=== PATIENT | male | born 1935 | race Caucasian/White ===

== ENCOUNTER 2023-12-20 09:25 | Inpatient (IN) | payer MEDICARE, OTHER, SELFPAY ==
[2023-12-20] VITALS (20 sets, daily range): BP systolic 90–123; BP diastolic 45–77; PULSE 59–91; TEMP 36.4–37.1; O2SAT 91–100; BMI 23.5; BMI 24.9
--- NOTE | 2023-12-20 09:40 | XR_ITS ---
The [address] [address] Patient Name: ANTWAN SOMMER MRN: [id number] date: 1935 Sex: M Assigned Patient Location: ER Current Patient Location: ER Accession/Order Number: [id number] Exam Date: 12/20/2023 09:52 Report Date: 12/20/2023 10:30 At the request of: SHIRIN ALBERT Procedure: XR chest 1V EXAMINATION: XR chest 1V HISTORY: weakness COMPARISON: 06/21/2021 TECHNIQUE: AP portable FINDINGS: LUNGS: Some mild increased interstitial lung markings likely representing chronic change. No new focal parenchymal infiltrates VASCULATURE: No increased pulmonary vasculature. PLEURA: No pneumothorax, effusion, or pleural thickening. CARDIAC: No cardiomegaly or cardiac silhouette abnormality. MEDIASTINUM: No visible mass or adenopathy. Left bipolar pacemaker. Aortic atherosclerosis BONES: No fracture or visible bone lesion. OTHER: Negative. XR/XR chest 1V IMPRESSION: No acute cardiopulmonary process Electronically authenticated by: JOSIAH ROBERTO Date: 12/20/2023 10:30
--- NOTE | 2023-12-20 09:40 | ECG_ITS ---
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
[2023-12-20 09:52] LABS: Basophils Absolute Auto 0.1 10^3/uL (0.0-0.1); Basophils Percent Auto 0.6 % (0.2-2.0); Eosinophils Absolute Auto 0.1 10^3/uL (0.0-0.7); Eosinophils Percent Auto 1.5 % (0.9-7.0); Hematocrit 30.4 % (42.0-54.0); Hemoglobin 9.6 g/dL (14.0-18.0); Immature Granulocytes Abs Auto 0.02 10^3/uL (0.00-0.03); Immature Granulocytes Pct Auto 0.2 % (0.0-0.5); Lymphocytes Absolute Auto 1.7 10^3/uL (1.2-3.8); Lymphocytes Percent Auto 19.9 % (20.5-60.0); Mean Corpuscular HGB Conc 31.6 g/dL (29.9-35.2); Mean Corpuscular Hemoglobin 27.8 pg (25.9-34.0); Mean Corpuscular Volume 88.1 fL (80.0-94.0); Mean Platelet Volume 12.7 fL (9.5-13.5); Monocytes Absolute Auto 0.9 10^3/uL (0.3-0.8); Monocytes Percent Auto 10.7 % (1.7-12.0); Neutrophils Absolute Auto 5.8 10^3/uL (1.4-6.5); Neutrophils Percent Auto 67.1 % (43.0-75.0); Platelet Count 157 10^3/uL (150-450); Red Blood Count 3.45 10^6/uL (4.70-6.10); Red Cell Distribution Width 14.8 % (11.0-15.0); White Blood Count 8.7 10^3/uL (4.0-11.0)
--- NOTE | 2023-12-20 09:56 | CT_ITS ---
The [address] [address] Patient Name: ANTWAN SOMMER MRN: [facility]:[id number] date: 1935 Sex: M Assigned Patient Location: ER Current Patient Location: .MAIN Accession/Order Number: [id number] Exam Date: 12/20/2023 09:52 Report Date: 12/20/2023 10:15 At the request of: SHIRIN ALBERT Procedure: CT head/brain wo con EXAM: CT head/brain wo con HISTORY: multiples falls, increasing weakness COMPARISON: None. TECHNIQUE: Axial noncontrast CT imaging of the head was performed with coronal and sagittal reformats. This CT exam was performed using one or more of the following dose reduction techniques: Automated exposure control, adjustment of the MA and/or kV according to patient size, or use of iterative reconstruction technique. FINDINGS: Calvarium/skull base: No evidence of acute fracture or destructive lesion. Mastoids and middle ears demonstrate no substantial mucosal disease. Paranasal sinuses: No air fluid levels. Brain: Streak artifact from craniocervical junction fusion hardware and of mildly degrades evaluation of posterior fossa structures. No acute intracranial hemorrhage. No acute large vascular territory infarct. Mild patchy hypodensities are present involving supratentorial white matter and left greater than right basal ganglia with the basal ganglia involvement more than typically seen relating to sequela of small vessel disease. No mass lesion or mass effect. No hydrocephalus. Additional comments: Partially visualized craniocervical junction fusion hardware. CT/CT head/brain wo con IMPRESSION: 1. No acute large vascular territory infarct or acute intracranial hemorrhage. 2. Mild patchy hypodensities are present involving supratentorial white matter and left greater than right basal ganglia with the basal ganglia involvement more than typically seen relating to sequela small vessel disease. While this may relate to a prominent perivascular spaces not well evaluated on CT areas of acute ischemia are not excluded. If there is clinical concern for acute ischemia recommend MRI brain for further evaluation. Electronically authenticated by: DOT MONACO Date: 12/20/2023 10:15
[2023-12-20 10:03] LABS: Influenza Virus A Antigen Negative; Influenza Virus B Antigen Negative; Internal Control Within Normal Limits; SARS-CoV-2 Ag NEGATIVE (NEGATIVE)
[2023-12-20] MEDS: 0.9 % SODIUM CHLORIDE 500 ML IV (10:11)
--- NOTE | 2023-12-20 10:17 | ED.WEAKNESS1 ---
HPI - Weakness General Chief complaint: Weakness Stated complaint: GENERAL WEAKNESS Time Seen by Provider: 12/20/23 09:29 Source: patient Mode of arrival: ambulance Limitations: no limitations History of Present Illness HPI Narrative: Present to the ED complaining of generalized weakness. Patient states recently he has had some falls, he said he is fallen 3 times Since Monday. Today he was so weak he could not even get out of bed. He said for the past 2 weeks he has noticed that his left leg seems more weak than his right. He denies any chest pain or shortness of breath denies belly pain nausea vomiting. No syncope. He does have a little bit of elbow pain because of the fall with a small hematoma and abrasion but no pain with range of motion. He is alert and oriented x 3. Denies UTI symptoms. He just reports generalized weakness that has been progressively worsening and was the worst this morning with him being unable to even get out of bed. Patient has a pacemaker and is on a blood thinner due to a history of blood clots Related Data Home Medications ?Medication ?Instructions ?Recorded ?Confirmed allopurinol 100 mg tablet 100 mg PO DAILY 12/20/23 12/20/23 atorvastatin 10 mg tablet 10 mg PO DAILY 12/20/23 12/20/23 baclofen 10 mg tablet 10 mg PO BEDTIME 12/20/23 12/20/23 brimonidine 0.2 % eye drops 1 drp ophthalmic (eye) BID 12/20/23 12/20/23 furosemide 20 mg tablet mg 12/20/23 furosemide 40 mg tablet 40 mg PO .every other day 12/20/23 12/20/23 latanoprost 0.005 % eye drops 1 drp ophthalmic (eye) BEDTIME 12/20/23 12/20/23 lisinopril 20 mg tablet 20 mg PO DAILY 12/20/23 12/20/23 metoprolol succinate 100 mg 100 mg PO DAILY 12/20/23 12/20/23 tablet,extended release 24 hr oxybutynin chloride 5 mg 5 mg PO DAILY 12/20/23 12/20/23 tablet,extended release 24 hr pregabalin 75 mg capsule 75 mg PO DAILY 12/20/23 12/20/23 rivaroxaban 15 mg tablet (Xarelto) 15 mg PO DAILY 12/20/23 12/20/23 spironolactone 25 mg tablet 25 mg PO DAILY 12/20/23 12/20/23 tamsulosin 0.4 mg capsule 0.4 mg PO DAILY 12/20/23 12/20/23 timolol maleate 0.5 % eye drops 1 drp ophthalmic (eye) DAILY 12/20/23 12/20/23 Allergies Allergy/AdvReac Type Severity Reaction Status Date / Time No Known Drug Allergies Allergy Verified 12/20/23 09:27 Review of Systems ROS Status of ROS 10 or more systems reviewed and unremarkable except as noted in history and below Exam Narrative Exam Narrative: Time Seen: [] Vital Signs: [Per nurse's notes.] General: [Alert]Generalized weakness Skin: [Warm, dry, no rash.] Head: [Normocephalic, atraumatic.] Neck: [Supple, trachea midline.] Eye: [Pupils are equal, round and reactive to light, extraocular movements are intact, normal conjunctiva.] Ears, nose, mouth and throat: oral mucosa moist. Cardiovascular: [Regular rate and rhythm, no murmur.] Respiratory: [Lungs are clear to auscultation, respirations are non-labored, breath sounds are equal.] Chest wall: [No tenderness, no deformity.] Gastrointestinal: [Soft, nontender, non distended, normal bowel sounds.] MSK: Slight weakness on the left lower extremity which is more pronounced than the other extremities. Normal distal pulses and sensation. No calf pain or swelling. Lymphatics: [No lymphadenopathy.] Psychiatric: [Cooperative, appropriate mood & affect.] Neurological: [Alert and oriented to person, place, time, and situation, no focal neurological deficit observed.] Constitutional Vital Signs, click to edit/add: Last Vital Signs Temp 98.7 F 12/20/23 09:27 Pulse 83 12/20/23 11:01 Resp 16 12/20/23 09:30 BP 96/45 L 12/20/23 11:01 Pulse Ox 100 12/20/23 11:01 O2 Del Method Room Air 12/20/23 09:27 Course Vital Signs Vital signs: Vital Signs Temperature 98.7 F 12/20/23 09:27 Pulse Rate 91 H 12/20/23 09:27 Respiratory Rate 24 H 12/20/23 09:27 Blood Pressure 121/70 12/20/23 09:27 Pulse Oximetry 98 12/20/23 09:27 Oxygen Delivery Method Room Air 12/20/23 09:27 Temperature 98.7 F 12/20/23 09:27 Pulse Rate 83 12/20/23 11:01 Respiratory Rate 16 12/20/23 09:30 Blood Pressure 96/45 L 12/20/23 11:01 Pulse Oximetry 100 12/20/23 11:01 Oxygen Delivery Method Room Air 12/20/23 09:27 MDM - Weakness MDM Narrative Medical decision making narrative: I spoke to Dr. Magaña who requested that I talk to telestroke to make sure that the left Leg weakness and potential ischemia on the CT does not need to be transferred out or any different type of workup. I spoke to telestroke and they said to keep him here as this was appropriate at this time and order an MRI MRA Head and neck. I called Dr. Magaña back and filled him in on this and he is comfortable with care plan for admission. Patient is comfortable with staying in the hospital. He is stable here in ED and will be admitted for further workup of the weakness Differential Diagnosis Differential diagnosis: Likely sepsis and other (Stroke, TIA, electrolyte abnormality) Medical Records Attestation: I reviewed the patient's medical records. Lab Data Attestation: I reviewed the patient's lab results. Labs: Lab Results 12/20/23 12/20/23 12/20/23 Range/Units 09:35 09:45 10:38 WBC 8.7 (4.0-11.0) 10^3/uL RBC 3.45 L (4.70-6.10) 10^6/uL Hgb 9.6 L (14.0-18.0) g/dL Hct 30.4 L (42.0-54.0) % MCV 88.1 (80.0-94.0) fL MCH 27.8 (25.9-34.0) pg MCHC 31.6 (29.9-35.2) g/dL RDW 14.8 (11.0-15.0) % Plt Count 157 (150-450) 10^3/uL MPV 12.7 (9.5-13.5) fL Neut % (Auto) 67.1 (43.0-75.0) % Lymph % (Auto) 19.9 L (20.5-60.0) % [place] % (Auto) 10.7 (1.7-12.0) % Eos % (Auto) 1.5 (0.9-7.0) % Baso % (Auto) 0.6 (0.2-2.0) % Neut # (Auto) 5.8 (1.4-6.5) 10^3/uL Lymph # (Auto) 1.7 (1.2-3.8) 10^3/uL [place] # (Auto) 0.9 H (0.3-0.8) 10^3/uL Eos # (Auto) 0.1 (0.0-0.7) 10^3/uL Baso # (Auto) 0.1 (0.0-0.1) 10^3/uL Abs Immat Gran (auto) 0.02 (0.00-0.03) 10^3/uL Imm/Tot Granulo (auto) 0.2 (0.0-0.5) % Sodium 139 (136-145) mmol/L Potassium 4.1 (3.5-5.1) mmol/L Chloride 106 (98-107) mmol/L Carbon Dioxide 25.0 (21.0-32.0) mmol/L Anion Gap 12.1 BUN 47.0 H (7.0-18.0) mg/dL Creatinine 1.83 H (0.70-1.30) mg/dL Est GFR ( Amer) 43 L (>=60) Est GFR (Non-Af Amer) 35 L (>=60) BUN/Creatinine Ratio 25.7 Glucose 92 (74-106) mg/dL Calcium 9.4 (8.5-10.1) mg/dL Total Bilirubin 0.7 (0.2-1.0) mg/dL AST 19 (15-37) U/L ALT 13 L (16-63) U/L Alkaline Phosphatase 64 (46-116) U/L Troponin I High Sens 75.1 (4.0-76.1) pg/mL Total Protein 8.1 (6.4-8.2) g/dL Albumin 3.1 L (3.4-5.0) g/dL Globulin 5.0 g/dL Albumin/Globulin Ratio 0.6 Urine Color Lt. yellow (YELLOW) Urine Clarity Clear (CLEAR) Urine pH 6.0 (5.0-9.0) Ur Specific [place] 1.015 (1.005-1.025) Urine Protein Negative (NEG/TRACE) mg/dL Urine Glucose (UA) Negative (NEGATIVE) mg/dL Urine Ketones Negative (NEGATIVE) mg/dL Urine Occult Blood Small A (NEGATIVE) Urine Nitrite Negative (NEGATIVE) Urine Bilirubin Negative (NEGATIVE) Urine Urobilinogen 0.2 (0.2-1.0) EU/dL Ur Leukocyte Esterase Negative (NEGATIVE) Urine RBC 5-10 A (0-2) #/HPF Urine WBC 0-2 A (NONE SEEN) #/HPF Ur Squamous Epith Cells Rare (NONE/RARE) #/LPF Urine Crystals None seen (None Seen) #/HPF Urine Bacteria None seen (NONE SEEN) #/HPF Urine Casts None seen (NONE SEEN) #/LPF Urine Mucus None seen (NONE SEEN) Ur Culture Indicated? No Influenza Type A Ag Negative Influenza Type B Ag Negative SARS-CoV-2 Ag (CV2AG) Negative (NEGATIVE) Imaging Data CT scan - head: Radiologist's impression: ITS Impressions Chest X-Ray 12/20/23 09:40 IMPRESSION: No acute cardiopulmonary process Electronically authenticated by: JOSIAH ROBERTO Date: 12/20/2023 10:[address] 12/20/23 09:56 IMPRESSION: 1. No acute large vascular territory infarct or acute intracranial hemorrhage. 2. Mild patchy hypodensities are present involving supratentorial white matter and left greater than right basal ganglia with the basal ganglia involvement more than typically seen relating to sequela small vessel disease. While this may relate to a prominent perivascular spaces not well evaluated on CT areas of acute ischemia are not excluded. If there is clinical concern for acute ischemia recommend MRI brain for further evaluation. Electronically authenticated by: DOT MONACO Date: 12/20/2023 10:15 ECG Data Attestation: I personally reviewed and interpreted this ECG as follows: Interpretation: EKG INTERPRETATION Time: []821 Rate: []83 Rhythm: _ []Paced ST segments: _ [] T waves: _ [] Ectopy: _ [] P wave/VA interval: _ [] QRS interval: _ [] QT interval: _ [] Comparison: _ [] Comparison EKG date: [] Performed by: [self]Wide-complex QRS paced rhythm left bundle branch block EMS EKG Discharge Plan Discharge Chief Complaint: Weakness Clinical Impression: Brain TIA, Weakness Patient Disposition: Admitted As Inpatient Time of Disposition Decision: 11:20 Condition: Fair Prescriptions / Home Meds: No Action Xarelto 15 mg tablet 15 mg PO DAILY allopurinol 100 mg tablet 100 mg PO DAILY atorvastatin 10 mg tablet 10 mg PO DAILY baclofen 10 mg tablet 10 mg PO BEDTIME brimonidine 0.2 % drops 1 drp OPHTHALMIC (EYE) BID furosemide 40 mg tablet 40 mg PO .every other day furosemide 20 mg tablet latanoprost 0.005 % drops 1 drp OPHTHALMIC (EYE) BEDTIME lisinopril 20 mg tablet 20 mg PO DAILY metoprolol succinate 100 mg tablet extended release 24 hr 100 mg PO DAILY oxybutynin chloride 5 mg tablet extended release 24hr 5 mg PO DAILY pregabalin 75 mg capsule 75 mg PO DAILY spironolactone 25 mg tablet 25 mg PO DAILY timolol maleate 0.5 % drops 1 drp OPHTHALMIC (EYE) DAILY tamsulosin 0.4 mg capsule 0.4 mg PO DAILY Print Language: Sinhala Referrals: KERRI OSBORNE [Primary Care Provider] - 1 week
[2023-12-20 10:26] LABS: Alanine Aminotransferase 13 U/L (16-63); Albumin Globulin Ratio 0.6; Albumin Level 3.1 g/dL (3.4-5.0); Alkaline Phosphatase 64 U/L (46-116); Anion Gap 12.1; Aspartate Amino Transferase 19 U/L (15-37); BUN Creatinine Ratio 25.7; Bilirubin Total 0.7 mg/dL (0.2-1.0); Calcium 9.4 mg/dL (8.5-10.1); Chloride 106 mmol/L (98-107); Estimated GFR (African America 43 (>=60); Estimated GFR (Non-African Ame 35 (>=60); Glucose 92 mg/dL (74-106); Potassium 4.1 mmol/L (3.5-5.1); Sodium 139 mmol/L (136-145); Total Protein 8.1 g/dL (6.4-8.2); Troponin I High Sensitivity 75.1 pg/mL (4.0-76.1)
[2023-12-20 10:49] LABS: Bilirubin Urine NEGATIVE (NEGATIVE); Blood Urine SMALL (NEGATIVE); Clarity Urine CLEAR (CLEAR); Color Urine LT. YELLOW (YELLOW); Glucose Urine UA NEGATIVE (NEGATIVE); Ketones Urine NEGATIVE (NEGATIVE); Leukocyte Esterase Urine NEGATIVE (NEGATIVE); Nitrite Urine NEGATIVE (NEGATIVE); Protein Urine NEGATIVE (NEG/TRACE); Specific Gravity Urine 1.015 (1.005-1.025); Urine Microscopic Indicated YES; Urobilinogen Urine 0.2 EU/dL (0.2-1.0)
[2023-12-20 10:51] LABS: WBC Urine 0-2 #/HPF (NONE SEEN)
[2023-12-20 10:52] LABS: Bacteria Urine NONE SEEN #/HPF (NONE SEEN); Cast Seen? NONE SEEN #/LPF (NONE SEEN); Crystals Seen? None Seen #/HPF (None Seen); Mucus Urine NONE SEEN (NONE SEEN); Squamous Epithelial Cell Urine RARE #/LPF (NONE/RARE); Urine Culture Indicated NO
--- NOTE | 2023-12-20 11:37 | CA_ITS ---
Patient Name: ANTWAN SOMMER MR#: [id number] : 1935 Exam Date: 12/20/2023 Ordering Doctor: Fadumo Roman ECHOCARDIOGRAM REPORT PROCEDURE: CA ECHO DOPPLER COMPLETE INDICATIONS: Suspected CVA COMPARISON: None. DESCRIPTION: COMPLETE ECHOCARDIOGRAM Real-time transthoracic echocardiography with 2D, M-mode, spectral and color flow Doppler performed. QUALITY: Technical quality was good. LEFT VENTRICLE: Normal chamber size. Mild concentric left ventricular hypertrophy. LV EF: Global left ventricular systolic function is at lower normal limits; ejection fraction is estimated at 50 to 55%. Abnormal septal motion may be related to paced rhythm/bundle branch block. DIASTOLIC: Unable to assess diastolic function. ATRIAL SEPTUM: Agitated saline contrast does not reveal an intra-cardiac shunt. LEFT ATRIUM: Severe dilatation. RIGHT ATRIUM: Moderate dilatation. RIGHT VENTRICLE: Moderate dilatation. Decreased right ventricular systolic function. Pacer wire present. TRICUSPID VALVE: Normal mobility and thickness. Mild regurgitation. Mild pulmonary hypertension. RVSP 35mmHg MITRAL VALVE: Normal mobility and thickness. No evidence of mitral valve stenosis. There is no mitral annular calcification. Moderate mitral regurgitation. AORTIC VALVE: Normal trileaflet appearance. Moderately calcified aortic valve. Normal leaflet mobility. No evidence of aortic valve stenosis. Mild aortic regurgitation. AORTIC ROOT: Mildly dilated, measuring 4.2cm. Mildly dilated ascending aorta, measuring 3.7 cm. PULMONIC VALVE: Normal thickness and mobility. No stenosis. No regurgitation. PERICARDIUM: No evidence of pericardial effusion. IVC: Collapses with inspirations. Normal size. CONCLUSION: 1. Global left ventricular systolic function is Normal limits; visually estimated ejection fraction is 50 to 55% 2. The right ventricle is moderately dilated with reduced systolic function 3. Mildly increased left ventricular wall thickness 4. Biatrial enlargement 5. Mild tricuspid regurgitation 6. Mildly elevated right ventricular systolic pressure; RVSP 35 mmHg 7. Moderate mitral regurgitation 8. Mild aortic regurgitation 9. The aortic root is mildly dilated; the ascending aorta is mildly dilated 10. Agitated saline contrast does not reveal an intracardiac shunt Adult Echocardiography Procedure Report Left Ventricle LVEDD (3.7 - 5.6 cm): 4.74 cm LVESD (2.2 - 4.0 cm): 3.23 cm LVIVS thickness (0.6 - 1.2 cm): 1.34 cm LVPW thickness (0.5 - 1.0 cm): 1.20 cm e': 0.12 m/s E - e': 5.24 LVOT Max Gradient: 1.81 mm[Hg] LVOT Area (cm2): 0.67 m/s Peak Velocity (LVOT): 0.67 m/s Mean Velocity (LVOT): 0.46 m/s LVOT Diameter 2.06 cm Left Ventricular Ejection Fraction: 53.25 % Left Atrium LA Volume Index (2D A2C): 72.13 ml/m2 Left Atrium Systolic Dimension: 4.56 cm Mitral Valve Mitral Valve E-Wave Peak Velocity: 0.64 m/s Right Ventricle RV Internal Diastolic Dimension: 5.03 cm Aorta AO Root Diam: 4.16 cm Ascending Ao Diam: 3.69 cm Aortic Valve AoV Area (Peak Delvis): 2.27 cm2, 2.27 cm2 AoV Area (VTI): 2.32 cm2, 2.32 cm2 Deceleration [place]: 1.17 m/s2 Pressure Half-Time: 776.11 ms Peak Velocity(Antegrade Flow): 0.99 m/s Peak Gradient(Antegrade Flow): 3.94 mm[Hg] Mean Velocity(Antegrade Flow): 0.69 m/s Mean Gradient(Antegrade Flow): 2.21 mm[Hg] Velocity Time Integral: 21.37 cm Tricuspid Valve Peak Velocity (Regurgitant Flow): 2.25 m/s, 2.74 m/s, 2.84 m/s Pulmonic Valve Mean Gradient: 1.20 mm[Hg] Mean Velocity: 0.52 m/s Peak Velocity: 0.72 m/s, 0.70 m/s Peak Gradient: 1.95 mm[Hg], 2.10 mm[Hg] Right Atrium Right Atrium Systolic Pressure: 107.36 ml, 107.36 ml Dictated by: Pierre Rodriguez M.D. on 12/22/2023 at 12:22 Approved by: Pierre Rodriguez M.D. on 12/22/2023 at 12:30
[2023-12-20 12:01] LABS: Estimated Average Glucose 111 mg/dL; Glycohemoglobin A1C 5.5 % (4.5-6.2)
[2023-12-20 12:02] LABS: Chol HDL Ratio 2.2; Cholesterol 103 mg/dL (<=200); HDL Cholesterol 47 mg/dL (40-60); LDL Cholesterol Calculated 43.2 mg/dL; Triglycerides 64 mg/dL (<=150); VLDL CHOLESTEROL 12.8 mg/dL
--- NOTE | 2023-12-20 13:44 | CT_ITS ---
The [address] [address] Patient Name: ANTWAN SOMMER MRN: [id number] date: 1935 Sex: M Assigned Patient Location: MS Current Patient Location: MS Accession/Order Number: [id number] Exam Date: 12/20/2023 13:35 Report Date: 12/20/2023 14:22 At the request of: TREVER GONZALEZ Procedure: CT angio neck EXAM: CT angio neck, CT angio head HISTORY: Weakness/Falls/suspected CVA COMPARISON: CT head 12/20/2023. TECHNIQUE: Postcontrast CTA imaging of the head and neck was performed with coronal and sagittal reformats. Maximum intensity projection and 3-D reformats were performed on a separate workstation. NASCET criteria was utilized. This CT exam was performed using one or more of the following dose reduction techniques: Automated exposure control, adjustment of the MA and/or kV according to patient size, or use of iterative reconstruction technique. FINDINGS: Aortic arch: Imaged portion shows no evidence of aneurysm. 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 No hemodynamically significant stenosis involving origins of the aortic arch branch vessels.. Right carotid system: There is atherosclerotic ossification involving the carotid bulb and proximal right internal carotid artery. No evidence of significant (50% or greater) stenosis or occlusion. Left carotid system: Dense atherosclerotic ossification involving the carotid bulb and origin/proximal left internal carotid artery with short segment approximately 50% stenosis just distal to the origin. Vertebral arteries: Codominant. Atherosclerotic calcification of the origins of the bilateral vertebral arteries with mild stenosis. No evidence of significant (50% or greater) stenosis or occlusion. Anterior circulation: No evidence of aneurysm, significant stenosis, or occlusion. Absent versus extremely hypoplastic left A1 anterior cerebral artery segment. Vertebrobasilar system: No evidence of aneurysm, significant stenosis, or occlusion. Venous sinuses: Grossly patent. Additional findings: Mild emphysematous changes involving the visualized upper lungs. CT/CT angio neck IMPRESSION: 1. 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 2. Otherwise no hemodynamically significant stenosis, large vessel occlusion or aneurysm involving the neck or intracranial arteries. Electronically authenticated by: DOT MONACO Date: 12/20/2023 14:22
--- NOTE | 2023-12-20 13:44 | CT_ITS ---
The [address] [address] Patient Name: ANTWAN SOMMER MRN: [id number] date: 1935 Sex: M Assigned Patient Location: MS Current Patient Location: MS Accession/Order Number: [id number] Exam Date: 12/20/2023 13:35 Report Date: 12/20/2023 14:22 At the request of: TREVER GONZALEZ Procedure: CT angio head EXAM: CT angio neck, CT angio head HISTORY: Weakness/Falls/suspected CVA COMPARISON: CT head 12/20/2023. TECHNIQUE: Postcontrast CTA imaging of the head and neck was performed with coronal and sagittal reformats. Maximum intensity projection and 3-D reformats were performed on a separate workstation. NASCET criteria was utilized. This CT exam was performed using one or more of the following dose reduction techniques: Automated exposure control, adjustment of the MA and/or kV according to patient size, or use of iterative reconstruction technique. FINDINGS: Aortic arch: Imaged portion shows no evidence of aneurysm. 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 No hemodynamically significant stenosis involving origins of the aortic arch branch vessels.. Right carotid system: There is atherosclerotic ossification involving the carotid bulb and proximal right internal carotid artery. No evidence of significant (50% or greater) stenosis or occlusion. Left carotid system: Dense atherosclerotic ossification involving the carotid bulb and origin/proximal left internal carotid artery with short segment approximately 50% stenosis just distal to the origin. Vertebral arteries: Codominant. Atherosclerotic calcification of the origins of the bilateral vertebral arteries with mild stenosis. No evidence of significant (50% or greater) stenosis or occlusion. Anterior circulation: No evidence of aneurysm, significant stenosis, or occlusion. Absent versus extremely hypoplastic left A1 anterior cerebral artery segment. Vertebrobasilar system: No evidence of aneurysm, significant stenosis, or occlusion. Venous sinuses: Grossly patent. Additional findings: Mild emphysematous changes involving the visualized upper lungs. CT/CT angio head IMPRESSION: 1. 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 2. Otherwise no hemodynamically significant stenosis, large vessel occlusion or aneurysm involving the neck or intracranial arteries. Electronically authenticated by: DOT MONACO Date: 12/20/2023 14:22
--- NOTE | 2023-12-20 14:12 | P.HP_ITS ---
<Statement entered by Mesfin Magaña MD - 12/21/23 20:46> This documentation has been reviewed and approved. Pt seen and exam,ined at bedside, agree with input and finding from Nurse practitioner. HPI H&P: HPI History of Present Illness Chief complaint: BRAIN TIA WEAKNESS Narrative: 12/20/23 4093 This is an 88-year-old male patient with a complicated past medical history as outlined below including paroxysmal A-fib and history of PE/DVT on Xarelto, HFrEF LVEF 40 to 45% 07/2023, severe pulmonary HTN, pacemaker in place for sick sinus syndrome, BPH, HTN, and hyperlipidemia among others; who presented to the ED today complaining of frequent falls for the last 5 days. He notes onset of mild left lower extremity weakness about 7 to 10 days ago and his family notes onset of a weak voice about 5 to 7 days ago. The patient reports falling 3 times in the last 5 days which is unusual for him. He denies dizziness, vision changes, chest pain, shortness of breath, or N/V/D. He does complain of a cough for 2 to 3 days. He presented to the ED for further evaluation as his symptoms were persistent. Workup in the ED revealed hypotension (96/45), JORY on CKD 3A (BUN 47, CR 1.83, GFR 35), and anemia (9.6). Chest x-ray was unremarkable. A CT of the brain was obtained and this revealed no acute large vascular territory infarcts or hemorrhage, but patchy hypodensities of the supratentorial white matter and left greater than right basal ganglia with the basal ganglia involvement more than typically seen related to small vessel disease and acute ischemia cannot be excluded. The patient shows left sided weakness on exam. He is being admitted as an inpatient to the hospitalist service for suspected CVA with further neurologic workup and telestroke consult. At the time of my exam the patient is resting in bed having just come back from a CTA of the head and neck per telestroke recommendations. The patient is unable to have an MRI brain or an MRA of the head and neck due to his indwelling pacemaker. On my exam he appears to have a mild flattened nasolabial fold, very mild left upper extremity weakness with pediatric anesthesiologist pushes and pulls, and more notable weakness of the left lower extremity having difficulty holding it up against gravity. His voice is weak and soft, but no evidence of dysarthria. He does appear clinically dry on exam and we will hold his diuretics at least for the next 24 hours and given very gentle, slow IV fluid x 500 mL. Opioid HPI Opioid Management Most Recent Opioid Data: Last Pain Scale 3 12/20/23 09:27 Last Pain Assessment 12/20/23 15:57 Last ED Pain Assessment 12/20/23 09:27 Last ORT Total Score 0 12/20/23 12:53 Last ORT Risk Category Low Risk 12/20/23 12:53 Review of Systems ROS Status of ROS 10 or more systems reviewed and unremark able except as noted in history and below [facility] Medical History (Updated 12/20/23 @ 15:59 by Fadumo Roman NP) Cervical radiculopathy ?M54.12 - Radiculopathy, cervical region (ICD-10) Psoriatic arthritis ?L40.50 - Arthropathic psoriasis, unspecified (ICD-10) GERD without esophagitis ?K21.9 - Gastro-esophageal reflux disease without esophagitis (ICD-10) Raynaud's disease without gangrene ?I73.00 - Raynaud's syndrome without gangrene (ICD-10) Sinus node dysfunction ?I49.5 - Sick sinus syndrome (ICD-10) Cardiomyopathy ?I42.9 - Cardiomyopathy, unspecified (ICD-10) Pulmonary embolism ?I26.99 - Other pulmonary embolism without acute cor pulmonale (ICD-10) CKD (chronic kidney disease) stage 3, GFR 30-59 ml/min ?N18.30 - Chronic kidney disease, stage 3 unspecified (ICD-10) HFrEF (heart failure with reduced ejection fraction) ?I50.20 - Unspecified systolic (congestive) heart failure (ICD-10) BPH (benign prostatic hyperplasia) ?N40.0 - Benign prostatic hyperplasia without lower urinary tract symptoms (ICD-10) Kidney stones ?N20.0 - Calculus of kidney (ICD-10) Paroxysmal A-fib ?I48.0 - Paroxysmal atrial fibrillation (ICD-10) Glaucoma ?H40.9 - Unspecified glaucoma (ICD-10) Gout ?M10.9 - Gout, unspecified (ICD-10) DVT (deep venous thrombosis) ?I82.409 - Acute embolism and thrombosis of unspecified deep veins of unspecified lower extremity (ICD-10) Incontinence of urine ?R32 - Unspecified urinary incontinence (ICD-10) High blood cholesterol ?E78.00 - Pure hypercholesterolemia, unspecified (ICD-10) Hypertension ?I10 - Essential (primary) hypertension (ICD-10) Surgical History (Updated 12/20/23 @ 14:26 by Fadumo Roman NP) History of permanent cardiac pacemaker placement ?Z95.0 - Presence of cardiac pacemaker (ICD-10) H/O neck surgery ?Z98.890 - Other specified postprocedural states (ICD-10) H/O lithotripsy ?Z98.890 - Other specified postprocedural states (ICD-10) Family History (Updated 12/20/23 @ 13:23 by Kamila Emery) Mother Family history of CHF (congestive heart failure) Brother Family history of cancer Sister Family history of diabetes mellitus Social History (Updated 12/20/23 @ 13:24 by Kamila Emery) Within the past year, how often did you have a drink containing alcohol: never Within the past year, how often did you have six or more drinks on one occasion: never Score interpretation: A score less than 4 is consistent with normal alcohol consumption. Smoking status: Former smoker Non-prescribed substance use: denies use Previous occupational history: retired Highest level of school completed/degree received: 6th grade Are you now , , , , never or living with a partner: Little interest or pleasure in doing things: not at all Feeling down, depressed, or hopeless: not at all Feel stressed/tense/nervous/anxious/difficulty sleeping: not at all Meds Home Medications and Allergies Home Medications ?Medication ?Instructions ?Recorded ?Confirmed ?Type allopurinol 100 mg tablet 100 mg PO DAILY 12/20/23 12/20/23 History atorvastatin 10 mg tablet 10 mg PO DAILY 12/20/23 12/20/23 History baclofen 10 mg tablet 10 mg PO BEDTIME 12/20/23 12/20/23 History brimonidine 0.2 % eye drops 1 drp ophthalmic (eye) BID 12/20/23 12/20/23 History furosemide 20 mg tablet mg 12/20/23 History furosemide 40 mg tablet 40 mg PO .every other day 12/20/23 12/20/23 History latanoprost 0.005 % eye drops 1 drp ophthalmic (eye) BEDTIME 12/20/23 12/20/23 History lisinopril 20 mg tablet 20 mg PO DAILY 12/20/23 12/20/23 History metoprolol succinate 100 mg 100 mg PO DAILY 12/20/23 12/20/23 History tablet,extended release 24 hr oxybutynin chloride 5 mg 5 mg PO DAILY 12/20/23 12/20/23 History tablet,extended release 24 hr pregabalin 75 mg capsule 75 mg PO DAILY 12/20/23 12/20/23 History rivaroxaban 15 mg tablet (Xarelto) 15 mg PO DAILY 12/20/23 12/20/23 History spironolactone 25 mg tablet 25 mg PO DAILY 12/20/23 12/20/23 History tamsulosin 0.4 mg capsule 0.4 mg PO DAILY 12/20/23 12/20/23 History timolol maleate 0.5 % eye drops 1 drp ophthalmic (eye) DAILY 12/20/23 12/20/23 History Allergies Allergy/AdvReac Type Severity Reaction Status Date / Time No Known Drug Allergies Allergy Verified 12/20/23 09:27 Exam Constitutional Vital Signs, click to edit/add: Last Vital Signs Temp 98 F 12/20/23 12:53 Pulse 61 12/20/23 12:53 Resp 20 12/20/23 12:53 BP 123/77 12/20/23 12:53 Pulse Ox 96 12/20/23 12:53 O2 Del Method Room Air 12/20/23 12:53 Common normals: no apparent distress, oriented x3, alert and well nourished General appearance: cooperative Orientation/consciousness: Yes awake [facility] Common normals: normocephalic, head/scalp atraumatic, hearing grossly normal bilaterally and external nose normal Eye Common normals: PERRL, EOMs intact bilaterally, conjunctivae normal and no scleral icterus Alignment: alignment normal Eyelid: eyelids normal Neck & C-Spine Common normals: full ROM, supple and no JVD Chest Common normals: inspection of chest normal Chest: symmetrical chest wall rise Respiratory Common normals: normal respiratory effort, no retractions and no use of accessory muscles Effort & inspection: able to speak in complete sentences Auscultation: rhonchi (RLL, clears with cough) and diminished lung sounds (BLL) Cardio Common normals: no JVD, regular rate, regular rhythm, S1 normal heart sound, S2 normal heart sound, no gallops, no clicks, no murmurs, no rub and peripheral pulses 2+ throughout GI Common normals: Normal to inspection, nondistended, normoactive bowel sounds present, soft to palpation, non-tender, no hepatosplenomegaly, no masses and no bruits Bladder/kidney exam: bladder normal to palpation Back & Pelvis Common normals: thoracic and lumbar spine normal to inspection Extremity Common normals: normal capillary refill and no pedal edema General: normal exam except as noted; no clubbing and no cyanosis Neuro Eamon Coma Scale: GCS not evaluated Common normals: CN's II-XII intact bilaterally, moves all extremities and no sensory deficits noted Coordination/balance: inbtnf-hi-joob test normal, tnhx-qm-fchu test normal and Normal rapid alternating movements of the distal upper extremity present (Neuro) Speech: abnormal speech Details: other (weak voice) Sensory exam: double simultaneous stimulation for sensation normal Motor exam: strength abnormal (LUE 4+/5 physical therapy resident/pushes/pulls. LLE 4/5) Psych Common normals: mental status grossly normal, thought process normal, affect normal and activity/motor behavior normal Results Labs Labs: Short CBC 12/20/23 Range/Units 09:35 WBC 8.7 (4.0-11.0) 10^3/uL Hgb 9.6 L (14.0-18.0) g/dL Hct 30.4 L (42.0-54.0) % Plt Count 157 (150-450) 10^3/uL BMP 12/20/23 09:35 Sodium 139 Potassium 4.1 Chloride 106 Carbon Dioxide 25.0 BUN 47.0 H Creatinine 1.83 H Glucose 92 Calcium 9.4 Liver Function 12/20/23 Range/Units 09:35 Total Bilirubin 0.7 (0.2-1.0) mg/dL AST 19 (15-37) U/L ALT 13 L (16-63) U/L Alkaline Phosphatase 64 (46-116) U/L Albumin 3.1 L (3.4-5.0) g/dL Urine 12/20/23 Range/Units 10:38 Urine Color Lt. yellow (YELLOW) Urine Clarity Clear (CLEAR) Urine pH 6.0 (5.0-9.0) Ur Specific [place] 1.015 (1.005-1.025) Urine Protein Negative (NEG/TRACE) mg/dL Urine Glucose (UA) Negative (NEGATIVE) mg/dL Pulse Oximetry Attestation: I have reviewed the pertinent pulse oximetry results. ECG Attestation: ?I have reviewed the pertinent ECG results. Interpretation: Electronic ventricular pacemaker Atypical ECG Compared to ECG from 06/21/2021 Atrial flutter no longer present Ventricular premature complexes no longer present Right axis deviation no longer present Intraventricular conduction delay no longer present Imaging Chest x-ray: Attestation: I have reviewed the pertinent imaging results. Radiologist's impression: IMPRESSION: No acute cardiopulmonary process CT scan - head: Attestation: I have reviewed the pertinent imaging results. Radiologist's impression: IMPRESSION: 1. No acute large vascular territory infarct or acute intracranial hemorrhage. 2. Mild patchy hypodensities are present involving supratentorial white matter and left greater than right basal ganglia with the basal ganglia involvement more than typically seen relating to sequela small vessel disease. While this may relate to a prominent perivascular spaces not well evaluated on CT areas of acute ischemia are not excluded. If there is clinical concern for acute ischemia recommend MRI brain for further evaluation. 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 * Unable to obtain an MRI brain or MRA head/neck d/t indwelling pacemaker * CTA head/neck ordered - result pending * No evidence of acute intracranial hemorrhage despite falls while taking Xarelto * Ischemic CVA likely indicates failure of Xarelto and alternate anticoagulation should be considered * Lipid panel, A1C, and 2D Echo (w/ bubble study) ordered for complete CVA work up * C/S Telestroke service - we appreciate their assistance with this pt's care * C/S PT/OT/TELESALES ADVISOR * Neuro checks q4h * Tele * CBC, CMP daily (2) Frequent falls: Assessment and Plan: Acute * Suspect 2/2 possible CVA/acute weakness * PT/OT consults * CVA work up as above * Consider SNF placement pending clinical course (3) Weakness: Assessment and Plan: Acute * See suspected CVA above (4) JORY (acute kidney injury): Assessment and Plan: Acute * Mild, JORY on CKD3a baseline (BUN 47, Cr 1.83, GFR 35) * Baseline CKD3a: BUN 25-32, Cr 1.21-1.55, GFR 43-58 * Pt clinically dry on exam * Hold home lasix and spironolactone - resume when clinically indicated * Gentle NS IVF at 50 ml/hr x 500 ml, then stop * CMP daily (5) Paroxysmal A-fib: Assessment and Plan: Chronic * EKG fully V-paced in ED * Continue home metoprolol for rate control * Continue home Xarelto for now (6) HFrEF (heart failure with reduced ejection fraction): Assessment and Plan: Chronic * Hold home lasix and spironolactone for now d/t JORY * resume as soon as clinically indicated * Daily weights/strict I&O * 2D Echo ordered for CVA work up - last LVEF 40-45% 08/16/23 * Consider cardiology consult pending clinical course (7) BPH (benign prostatic hyperplasia): Assessment and Plan: Chronic * Continue home tamsulosin (8) Glaucoma: Assessment and Plan: Chronic * Continue home brimonidine, latanoprost, timolol (9) Hypertension: Assessment and Plan: Chronic * Continue home lisinopril * Hold for hypotension (10) High blood cholesterol: Assessment and Plan: Chronic * Continue home statin (11) Cervical radiculopathy: Assessment and Plan: Chronic * Continue home baclofen and Lyrica
--- NOTE | 2023-12-20 14:57 | SWNOTE1 ---
SW attempted to see pt. Pt had someone in room with him. SW asked pt if he was up for some questions and to talk to SW for a short time. Pt did ask for SW to come back later. Lights were off in room and pt was resting in bed. SW advised pt that SW will come back later today or tomorrow morning.
[2023-12-20] MEDS: 0.9 % SODIUM CHLORIDE 500 ML 50 ML IV (15:30)
--- NOTE | 2023-12-20 16:20 | PC.NURSE ---
Brenda Mcneil stroke team called to see result of MRI. Informed that due to pacemaker, CTA had to be done. She was given Radiology number to have them push result through PACS system (?) and she will call back tomorrow am to check on patient
[2023-12-20] MEDS: PREGABALIN 75 MG CAPSULE PO (21:18)
[2023-12-20] MEDS: LATANOPROST 0.005% 2.5 ML BOTTLE 1 DROP EYE-BOTH (21:18)
[2023-12-20] MEDS: TIMOLOL MALEATE 0.5% OP SOL 100 DROPS/5 ML BOTTLE 1 DROP OP (21:18)
[2023-12-20] MEDS: BACLOFEN 10 MG TABLET PO (21:18)
[2023-12-20] MEDS: BRIMONIDINE TARTRATE 0.15 % OP SOL 100 DROP/5 ML BOTTLE EYE-LEFT (21:19)
[2023-12-21] VITALS (17 sets, daily range): BP systolic 104–121; BP diastolic 50–72; PULSE 59–77; TEMP 36.1–36.7; O2SAT 94–100
[2023-12-21 04:29] LABS: Basophils Percent Auto 0.4 % (0.2-2.0); Eosinophils Absolute Auto 0.1 10^3/uL (0.0-0.7); Hematocrit 30.1 % (42.0-54.0); Hemoglobin 9.4 g/dL (14.0-18.0); Immature Granulocytes Abs Auto 0.02 10^3/uL (0.00-0.03); Immature Granulocytes Pct Auto 0.2 % (0.0-0.5); Lymphocytes Percent Auto 11.5 % (20.5-60.0); Mean Corpuscular HGB Conc 31.2 g/dL (29.9-35.2); Mean Corpuscular Hemoglobin 27.2 pg (25.9-34.0); Monocytes Absolute Auto 0.7 10^3/uL (0.3-0.8); Monocytes Percent Auto 7.6 % (1.7-12.0); Neutrophils Absolute Auto 7.1 10^3/uL (1.4-6.5); Neutrophils Percent Auto 79.3 % (43.0-75.0); Platelet Count 141 10^3/uL (150-450); Red Blood Count 3.46 10^6/uL (4.70-6.10); Red Cell Distribution Width 14.7 % (11.0-15.0); White Blood Count 8.9 10^3/uL (4.0-11.0)
[2023-12-21 04:50] LABS: Alanine Aminotransferase 13 U/L (16-63); Albumin Globulin Ratio 0.6; Albumin Level 2.9 g/dL (3.4-5.0); Alkaline Phosphatase 57 U/L (46-116); Anion Gap 9.9; Aspartate Amino Transferase 14 U/L (15-37); BUN Creatinine Ratio 24.8; Bilirubin Total 0.7 mg/dL (0.2-1.0); Calcium 9.2 mg/dL (8.5-10.1); Carbon Dioxide 26.8 mmol/L (21.0-32.0); Chloride 105 mmol/L (98-107); Estimated GFR (African America 51 (>=60); Estimated GFR (Non-African Ame 42 (>=60); Globulin 4.6 g/dL; Glucose 103 mg/dL (74-106); Potassium 4.7 mmol/L (3.5-5.1); Sodium 137 mmol/L (136-145); Total Protein 7.5 g/dL (6.4-8.2)
--- NOTE | 2023-12-21 06:00 | CT_ITS ---
The [address] [address] Patient Name: ANTWAN SOMMER MRN: [id number] date: 1935 Sex: M Assigned Patient Location: [place] Current Patient Location: [place] Accession/Order Number: [id number] Exam Date: 12/21/2023 06:14 Report Date: 12/21/2023 07:36 At the request of: TREVER GONZALEZ Procedure: CT head/brain wo con CT head/brain wo con, 12/21/2023 6:14 AM EDT INDICATION: Monitor for CVA changes COMPARISON: Prior CT of the head dated 12/20/2023 TECHNIQUE: Axial CT images of the brain from skull base to vertex, including portions of the face and sinuses, were obtained without contrast . Multiplanar reformatted images were generated and reviewed as needed. Dose reduction techniques were achieved by using automated exposure control and/or adjustment of mA and/or kV according to patient size and/or use of iterative reconstruction technique. FINDINGS: Status post interventional changes in the occipital region causing streak artifact that decreases the sensitivity of this study. The cerebral sulci as well as ventricular system are appropriate for age. There is no intracranial mass, mass effect, midline shift, intra or extra-axial fluid collection or hemorrhage. Periventricular and centrum semiovale hypodensities are most likely consistent with microvascular ischemic changes. 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 Mucosal thickening within the frontal and maxillary sinuses is noted. The visualized portions of orbits, mastoid air cells as well as remainder of paranasal sinuses are unremarkable. Status post bilateral lens replacement. There is no suspicious osteolytic or osteoblastic lesion. CT/CT head/brain wo con IMPRESSION: No acute intracranial process is noted. No significant interval change is noted. Electronically authenticated by: DANIELLE FIGUEROA Date: 12/21/2023 07:36
--- NOTE | 2023-12-21 09:49 | SWNOTE1 ---
SW spoke to case management and pt would like to go to rehab and he would like [facility]. SW to see if they have open beds.
--- NOTE | 2023-12-21 09:52 | CM.NOTE ---
Rounds made with Dr. Magaña, no discharge today. PT and OT will evaluate pt for discharge needs. Daughter at bedside and concerned about safety of pt returning home d/t weakness. Daughter would like to see about skilled therapy at discharge, choices would be [facility] and then [facility]. Explained that PT and OT will evaluate pt today.
--- NOTE | 2023-12-21 09:55 | CM.NOTE ---
Important Message From Medicare discussed with pt, pt verbalizes understanding and signs paper. Original given to pt and copy placed on pt's chart.
[2023-12-21] MEDS: ATORVASTATIN CALCIUM 10 MG TABLET PO (10:18)
[2023-12-21] MEDS: BACLOFEN 10 MG TABLET PO ×2 (10:18→22:01)
[2023-12-21] MEDS: PREGABALIN 75 MG CAPSULE PO ×2 (10:18→22:01)
[2023-12-21] MEDS: BRIMONIDINE TARTRATE 0.15 % OP SOL 100 DROP/5 ML BOTTLE EYE-LEFT ×2 (10:19→22:02)
[2023-12-21] MEDS: TIMOLOL MALEATE 0.5% OP SOL 100 DROPS/5 ML BOTTLE 1 DROP OP ×2 (10:19→22:01)
[2023-12-21] MEDS: OXYBUTYNIN CHLORIDE 5 MG TAB XL PO (10:19)
[2023-12-21] MEDS: RIVAROXABAN 10 MG TABLET 15 MG PO (10:19)
[2023-12-21] MEDS: METOPROLOL SUCCINATE 100 MG TAB.ER.24H PO (10:19)
--- NOTE | 2023-12-21 11:19 | SWNOTE1 ---
SW sent over PT/OT notes to [facility].
--- NOTE | 2023-12-21 12:42 | PM.PN ---
Progress Note: Subjective Subjective Interval history: 12/21/23 0920 Exam Constitutional Vital Signs, click to edit/add: Last Vital Signs Temp 97.6 F 12/21/23 12:34 Pulse 60 12/21/23 12:34 Resp 18 12/21/23 12:34 BP 117/72 12/21/23 12:34 Pulse Ox 98 12/21/23 12:34 O2 Del Method Room Air 12/21/23 12:34 Progress Note: Objective Labs Labs: Short CBC 12/21/23 Range/Units 04:03 WBC 8.9 (4.0-11.0) 10^3/uL Hgb 9.4 L (14.0-18.0) g/dL Hct 30.1 L (42.0-54.0) % Plt Count 141 L (150-450) 10^3/uL BMP 12/21/23 04:03 Sodium 137 Potassium 4.7 Chloride 105 Carbon Dioxide 26.8 BUN 39.0 H Creatinine 1.57 H Glucose 103 Calcium 9.2 Liver Function 12/21/23 Range/Units 04:03 Total Bilirubin 0.7 (0.2-1.0) mg/dL AST 14 L (15-37) U/L ALT 13 L (16-63) U/L Alkaline Phosphatase 57 (46-116) U/L Albumin 2.9 L (3.4-5.0) g/dL Progress Note: A&P Assessment and Plan (1) Suspected cerebrovascular accident (CVA): (2) Frequent falls: (3) Weakness: (4) JROY (acute kidney injury): (5) Paroxysmal A-fib: (6) HFrEF (heart failure with reduced ejection fraction): (7) BPH (benign prostatic hyperplasia): (8) Glaucoma: (9) Hypertension: (10) High blood cholesterol: (11) Cervical radiculopathy:
--- NOTE | 2023-12-21 12:49 | P.PN_ITS ---
<Statement entered by Mesfin Magaña MD - 12/21/23 20:49> This documentation has been reviewed and approved. Pt seen and examined at bedside, agree with input and finding from Nurse practitioner. Progress Note: Subjective Subjective Interval history: 12/21/23 0920 The patient is currently sitting up in a bedside chair at the time of my exam. He denies any acute complaints but continues to note mild left-sided weakness, primarily in the left lower extremity, and voice weakness. A repeat CT of the brain this morning did not show any acute changes, just lacunar infarcts noted in the right basal ganglia and left insula consistent with the imaging from yesterday. Again, the patient is unable to have an MRI/MRA done due to the presence of an indwelling pacemaker. Telestroke consult visit is pending later today. Exam Constitutional Vital Signs, click to edit/add: Last Vital Signs Temp 97.6 F 12/21/23 12:34 Pulse 60 12/21/23 12:34 Resp 18 12/21/23 12:34 BP 117/72 12/21/23 12:34 Pulse Ox 98 12/21/23 12:34 O2 Del Method Room Air 12/21/23 12:34 Common normals: no apparent distress, oriented x3 and alert General appearance: cooperative Orientation/consciousness: Yes awake [facility] Common normals: normocephalic, head/scalp atraumatic and hearing grossly normal bilaterally Eye Common normals: PERRL, EOMs intact bilaterally, conjunctivae normal and no scleral icterus General eye: normal appearance of both eyes Chest Common normals: inspection of chest normal Chest: symmetrical chest wall rise Respiratory Common normals: normal respiratory effort and no use of accessory muscles Effort & inspection: able to speak in complete sentences Auscultation: crackles (faint, fine BLL) Cardio Common normals: regular rate, regular rhythm, S1 normal heart sound, S2 normal heart sound, no murmurs and peripheral pulses 2+ throughout GI Common normals: Normal to inspection, nondistended, normoactive bowel sounds present, soft to palpation, non-tender and no hepatosplenomegaly Bladder/kidney exam: bladder normal to palpation Extremity Common normals: normal to inspection and no calf tenderness General: no clubbing, no cyanosis and no edema Neuro Common normals: moves all extremities and no sensory deficits noted Speech: other (Weak voice) Motor exam: strength abnormal (LUE 4+/5, LLE 4/5 - primarily at hip flexor) Psych Common normals: mental status grossly normal Progress Note: Objective Labs Labs: Short CBC 12/21/23 Range/Units 04:03 WBC 8.9 (4.0-11.0) 10^3/uL Hgb 9.4 L (14.0-18.0) g/dL Hct 30.1 L (42.0-54.0) % Plt Count 141 L (150-450) 10^3/uL BMP 12/21/23 04:03 Sodium 137 Potassium 4.7 Chloride 105 Carbon Dioxide 26.8 BUN 39.0 H Creatinine 1.57 H Glucose 103 Calcium 9.2 Liver Function 12/21/23 Range/Units 04:03 Total Bilirubin 0.7 (0.2-1.0) mg/dL AST 14 L (15-37) U/L ALT 13 L (16-63) U/L Alkaline Phosphatase 57 (46-116) U/L Albumin 2.9 L (3.4-5.0) g/dL Imaging CT scan - head: Attestation: I have reviewed the pertinent imaging results. Radiologist's impression: IMPRESSION: No acute intracranial process is noted. No significant interval change is noted. Progress Note: A&P Assessment and Plan (1) Suspected cerebrovascular accident (CVA): Assessment and Plan: Acute/subacute * Stable - no significant improvement * Suspect subacute CVA of the R basal ganglia/L Insula (Lacunar) * Unable to obtain an MRI brain or MRA head/neck d/t indwelling pacemaker * CTA head/neck 12/20/23 - Short segment of 50% stenosis of the L internal carotid - no other stenosis/ischemia of the major vessels * No evidence of acute intracranial hemorrhage despite falls while taking Xarelto * Ischemic CVA likely indicates failure of Xarelto and alternate anticoagulation should be considered - defer to neurology * Lipid panel & A1C - WNL * 2D Echo (w/ bubble study) completed 12/20/23 - cardiology interpretation still pending * C/S Telestroke service - we appreciate their assistance with this pt's care * Televisit planned later today * C/S PT/OT/CLIENT SERVICE CONSULTANT * Neuro checks q4h - no change to date * Tele * CBC, CMP daily (2) Frequent falls: Assessment and Plan: Acute * Suspect 2/2 possible CVA/acute weakness w/ underlying chronic weakness possible * PT/OT consults * CVA work up as above * Consider SNF placement pending clinical course (3) Weakness: Assessment and Plan: Acute * See suspected CVA above (4) JORY (acute kidney injury): Assessment and Plan: Acute * Improving (BUN 39, Cr 1.57, GFR 42 today) * Baseline CKD3a: BUN 25-32, Cr 1.21-1.55, GFR 43-58 * Dehydration resolved * Resume home lasix and spironolactone in AM * Continue to hold home lisinopril for now pending BP and renal response to diuretics tomorrow * Saline lock * CMP daily (5) Paroxysmal A-fib: Assessment and Plan: Chronic * EKG fully V-paced in ED * Continue home metoprolol for rate control * Continue home Xarelto for now (6) HFrEF (heart failure with reduced ejection fraction): Assessment and Plan: Chronic * Resume home lasix and spironolactone in AM * Daily weights/strict I&O * 2D Echo ordered for CVA work up - last LVEF 40-45% 08/16/23 * Consider cardiology consult pending clinical course (7) BPH (benign prostatic hyperplasia): Assessment and Plan: Chronic * Continue home tamsulosin (8) Glaucoma: Assessment and Plan: Chronic * Continue home brimonidine, latanoprost, timolol (9) Hypertension: Assessment and Plan: Chronic * Continue home metoprolol * Hold for hypotension * Continue to hold home lisinopril for now d/t JORY (10) High blood cholesterol: Assessment and Plan: Chronic * Continue home statin (11) Cervical radiculopathy: Assessment and Plan: Chronic * Continue home baclofen and Lyrica (12) Anemia: Assessment and Plan: Chronic * 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
--- NOTE | 2023-12-21 12:49 | PM.PN ---
Progress Note: Subjective Subjective Interval history: 12/21/23 09 The patient is currently sitting up in a bedside chair at the time of my exam. He denies any acute complaints but continues to note mild left-sided weakness, primarily in the left lower extremity, and voice weakness. A repeat CT of the brain this morning did not show any acute changes, just lacunar infarcts noted in the right basal ganglia and left insula consistent with the imaging from yesterday. Again, the patient is unable to have an MRI/MRA done due to the presence of an indwelling pacemaker. Telestroke consult visit is pending later today. Exam Constitutional Vital Signs, click to edit/add: Last Vital Signs Temp 97.6 F 12/21/23 12:34 Pulse 60 12/21/23 12:34 Resp 18 12/21/23 12:34 BP 117/72 12/21/23 12:34 Pulse Ox 98 12/21/23 12:34 O2 Del Method Room Air 12/21/23 12:34 Common normals: no apparent distress, oriented x3 and alert General appearance: cooperative Orientation/consciousness: Yes awake HENMT Common normals: normocephalic, head/scalp atraumatic and hearing grossly normal bilaterally Eye Common normals: PERRL, EOMs intact bilaterally, conjunctivae normal and no scleral icterus General eye: normal appearance of both eyes Chest Common normals: inspection of chest normal Chest: symmetrical chest wall rise Respiratory Common normals: normal respiratory effort and no use of accessory muscles Effort & inspection: able to speak in complete sentences Auscultation: crackles (faint, fine BLL) Cardio Common normals: regular rate, regular rhythm, S1 normal heart sound, S2 normal heart sound, no murmurs and peripheral pulses 2+ throughout GI Common normals: Normal to inspection, nondistended, normoactive bowel sounds present, soft to palpation, non-tender and no hepatosplenomegaly Bladder/kidney exam: bladder normal to palpation Extremity Common normals: normal to inspection and no calf tenderness General: no clubbing, no cyanosis and no edema Neuro Common normals: moves all extremities and no sensory deficits noted Speech: other (Weak voice) Motor exam: strength abnormal (LUE 4+/5, LLE 4/5 - primarily at hip flexor) Psych Common normals: mental status grossly normal Progress Note: Objective Labs Labs: Short CBC 12/21/23 Range/Units 04:03 WBC 8.9 (4.0-11.0) 10^3/uL Hgb 9.4 L (14.0-18.0) g/dL Hct 30.1 L (42.0-54.0) % Plt Count 141 L (150-450) 10^3/uL BMP 12/21/23 04:03 Sodium 137 Potassium 4.7 Chloride 105 Carbon Dioxide 26.8 BUN 39.0 H Creatinine 1.57 H Glucose 103 Calcium 9.2 Liver Function 12/21/23 Range/Units 04:03 Total Bilirubin 0.7 (0.2-1.0) mg/dL AST 14 L (15-37) U/L ALT 13 L (16-63) U/L Alkaline Phosphatase 57 (46-116) U/L Albumin 2.9 L (3.4-5.0) g/dL Imaging CT scan - head: Attestation: I have reviewed the pertinent imaging results. Radiologist's impression: IMPRESSION: No acute intracranial process is noted. No significant interval change is noted. 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) Unable to obtain an MRI brain or MRA head/neck d/t indwelling pacemaker CTA head/neck 12/20/23 - Short segment of 50% stenosis of the L internal carotid - no other stenosis/ischemia of the major vessels No evidence of acute intracranial hemorrhage despite falls while taking Xarelto Ischemic CVA likely indicates failure of Xarelto and alternate anticoagulation should be considered - defer to neurology Lipid panel & A1C - WNL 2D Echo (w/ bubble study) completed 12/20/23 - cardiology interpretation still pending C/S Telestroke service - we appreciate their assistance with this pt's care Televisit planned later today C/S PT/OT/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 CARE CASE MANAGER Neuro checks q4h - no change to date Tele CBC, CMP daily (2) Frequent falls: Assessment and Plan: Acute Suspect 2/2 possible CVA/acute weakness w/ underlying chronic weakness possible PT/OT consults CVA work up as above Consider SNF placement pending clinical course (3) Weakness: Assessment and Plan: Acute See suspected CVA above (4) JORY (acute kidney injury): Assessment and Plan: Acute Improving (BUN 39, Cr 1.57, GFR 42 today) Baseline CKD3a: BUN 25-32, Cr 1.21-1.55, GFR 43-58 Dehydration resolved Resume home lasix and spironolactone in AM Continue to hold home lisinopril for now pending BP and renal response to diuretics tomorrow Saline lock CMP daily (5) Paroxysmal A-fib: Assessment and Plan: Chronic EKG fully V-paced in ED Continue home metoprolol for rate control Continue home Xarelto for now (6) HFrEF (heart failure with reduced ejection fraction): Assessment and Plan: Chronic Resume home lasix and spironolactone in AM Daily weights/strict I&O 2D Echo ordered for CVA work up - last LVEF 40-45% 08/16/23 Consider cardiology consult pending clinical course (7) BPH (benign prostatic hyperplasia): Assessment and Plan: Chronic Continue home tamsulosin (8) Glaucoma: Assessment and Plan: Chronic Continue home brimonidine, latanoprost, timolol (9) Hypertension: Assessment and Plan: Chronic Continue home metoprolol Hold for hypotension Continue to hold home lisinopril for now d/t JORY (10) High blood cholesterol: Assessment and Plan: Chronic Continue home statin (11) Cervical radiculopathy: Assessment and Plan: Chronic Continue home baclofen and Lyrica (12) Anemia: Assessment and Plan: Chronic 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
--- NOTE | 2023-12-21 15:07 | RESP.RT ---
done this morning
--- NOTE | 2023-12-21 15:59 | CM.NOTE ---
Updated pt and family that [facility] will accept pt for skilled therapy at discharge.
[2023-12-21] MEDS: ASPIRIN 81 MG TAB.CHEW PO (16:24)
[2023-12-21] MEDS: TAMSULOSIN HCL 0.4 MG CAPSULE 0.400000000000000022 MG PO (22:01)
[2023-12-21] MEDS: LATANOPROST 0.005% 2.5 ML BOTTLE 1 DROP EYE-BOTH (22:02)
[2023-12-22] VITALS (20 sets, daily range): BP systolic 103–131; BP diastolic 52–69; PULSE 53–83; TEMP 36.3–36.8; O2SAT 94–96
[2023-12-22 05:38] LABS: Basophils Percent Auto 0.6 % (0.2-2.0); Eosinophils Absolute Auto 0.2 10^3/uL (0.0-0.7); Eosinophils Percent Auto 2.9 % (0.9-7.0); Hematocrit 30.1 % (42.0-54.0); Hemoglobin 9.3 g/dL (14.0-18.0); Immature Granulocytes Abs Auto 0.01 10^3/uL (0.00-0.03); Immature Granulocytes Pct Auto 0.1 % (0.0-0.5); Lymphocytes Absolute Auto 1.4 10^3/uL (1.2-3.8); Lymphocytes Percent Auto 19.7 % (20.5-60.0); Mean Corpuscular HGB Conc 30.9 g/dL (29.9-35.2); Mean Corpuscular Hemoglobin 27.2 pg (25.9-34.0); Mean Platelet Volume 13.1 fL (9.5-13.5); Monocytes Absolute Auto 0.8 10^3/uL (0.3-0.8); Monocytes Percent Auto 10.3 % (1.7-12.0); Neutrophils Absolute Auto 4.8 10^3/uL (1.4-6.5); Neutrophils Percent Auto 66.4 % (43.0-75.0); Platelet Count 143 10^3/uL (150-450); Red Blood Count 3.42 10^6/uL (4.70-6.10); Red Cell Distribution Width 14.5 % (11.0-15.0); White Blood Count 7.3 10^3/uL (4.0-11.0)
[2023-12-22 05:51] LABS: Alanine Aminotransferase 8 U/L (16-63); Albumin Globulin Ratio 0.6; Albumin Level 2.7 g/dL (3.4-5.0); Alkaline Phosphatase 54 U/L (46-116); Anion Gap 10.6; Aspartate Amino Transferase 13 U/L (15-37); BUN Creatinine Ratio 21.2; Bilirubin Total 0.7 mg/dL (0.2-1.0); Calcium 9.2 mg/dL (8.5-10.1); Carbon Dioxide 25.5 mmol/L (21.0-32.0); Chloride 103 mmol/L (98-107); Estimated GFR (African America 59 (>=60); Estimated GFR (Non-African Ame 49 (>=60); Globulin 4.7 g/dL; Glucose 90 mg/dL (74-106); Potassium 4.1 mmol/L (3.5-5.1); Sodium 135 mmol/L (136-145); Total Protein 7.4 g/dL (6.4-8.2)
--- NOTE | 2023-12-22 08:35 | CM.NOTE ---
Rounds made with Dr. Magaña, pt will discharge to [facility] for skilled therapy when medically stable.
[2023-12-22] MEDS: BACLOFEN 10 MG TABLET PO ×2 (08:52→20:49)
[2023-12-22] MEDS: PREGABALIN 75 MG CAPSULE PO ×2 (08:52→20:49)
[2023-12-22] MEDS: METOPROLOL SUCCINATE 100 MG TAB.ER.24H PO (08:52)
[2023-12-22] MEDS: ASPIRIN 81 MG TAB.CHEW PO (08:52)
[2023-12-22] MEDS: OXYBUTYNIN CHLORIDE 5 MG TAB XL PO (08:52)
[2023-12-22] MEDS: ATORVASTATIN CALCIUM 10 MG TABLET PO (08:53)
[2023-12-22] MEDS: RIVAROXABAN 10 MG TABLET 15 MG PO (08:53)
[2023-12-22] MEDS: BRIMONIDINE TARTRATE 0.15 % OP SOL 100 DROP/5 ML BOTTLE EYE-LEFT ×2 (09:00→20:48)
[2023-12-22] MEDS: TIMOLOL MALEATE 0.5% OP SOL 100 DROPS/5 ML BOTTLE 1 DROP OP ×2 (09:00→20:48)
--- NOTE | 2023-12-22 11:33 | PT.DAILY ---
Physical Therapy Daily Note PT Daily Note/Assess Start: 12/22/23 11:29 Freq: Status: Active Protocol: Document 12/22/23 11:30 KICHANABRIDGER (Rec: 12/22/23 11:33 [email or web address] [id number]) Physical Therapy Daily Note/Assessment Time In/Time Out Time In 11:00 Time Out 11:10 Pain In Pain N/A Pain Out Pain N/A Subjective Subjective Pt supine upon arrival. Agrees to PT. Denies pain currently. Therapeutic Exercise Time Therapeutic Exercise Minutes (minutes) 3 Therapeutic Exercise Units 0 Therapeutic Exercise Treatment Therapeutic Exercise Treatment Seated bilat LE strengthening ex complete while sitting EOB unsupported. Therapeutic Activity Time Therapeutic Activity Minutes (minutes) 5 Therapeutic Activity Units 1 Therapeutic Activity Treatment Bed Mobility Ability Minimum Assist Chair Transfer Ability Contact Guard Assist Therapeutic Activity Comments Supine>sit Harley to advance upper body to sit EOB. Sits EOB unsupported to complete bilat LE strengthening ex. Sit >stand to RW CGA with increased time needed. Pt amb 30' in room CGA for safety. Pt demonstrates scissoring gait with vc to widen stance - unreceptive of this. Pt wishes to lay back down at this time . Sit>supine SBA with increased time. ModA to scoot pt up in bed. Remains supine with call light in reach and needs met. Total Physical Therapy Time Total Therapy Minutes 8 Total Physical Therapy Units 1 Summary Daily Note Summary Improved gait endurance but cont to demonstrate weakness with scissoring gait.
--- NOTE | 2023-12-22 12:52 | P.PN_ITS ---
<Statement entered by Mesfin Magaña MD - 12/27/23 06:47> This documentation has been reviewed and approved. This documentation has been reviewed and approved. Pt seen and examined at the bedside. No complaints Agree with input and finding s from nurse practitioner Pt will do well in rehab Progress Note: Subjective Subjective Interval history: 12/22/23 0945 The patient is currently sitting up in a bedside chair at the time of my exam. He denies any acute complaints but continues to note mild left-sided weakness, primarily in the left lower extremity, and voice weakness. His LUE is slightly improved with equivocal unilateral weakness remaining. No new focal findings or complaints. Telestroke is recommending daily aspirin be added to his regimen and that hypotension be avoided. Despite holding his lisinopril, lasix and spironolactone since admission, his BP remains soft. We will reduce his home metoprolol succinate to 50 mg daily (unfortunately his previous dose was already given today), and hold his diuretics again today. His weight is stable since admission, he denies SOB, there is no evidence of peripheral edema, & only faint LLL rales noted on exam so he can clinically tolerate holding his diuretics again. We will reduce his home lasix dose to 20 mg in the AM in hopes of maintaining euvolemia in a pt w/ HFrEF (improved LVEF 50-55% on repeat Echo 12/20/23) while also avoiding hypotension. His spironolactone and lisinopril will be discontinued at discharge - likely in the next 24-48 hrs after monitoring these med changes. Exam Constitutional Vital Signs, click to edit/add: Last Vital Signs Temp 97.8 F 12/22/23 07:30 Pulse 60 12/22/23 12:00 Resp 18 12/22/23 07:30 BP 103/52 12/22/23 08:57 Pulse Ox 94 L 12/22/23 09:24 O2 Del Method Room Air 12/22/23 09:24 Common normals: no apparent distress, oriented x3 and alert General appearance: cooperative Orientation/consciousness: Yes awake HENFL Common normals: normocephalic, head/scalp atraumatic and hearing grossly normal bilaterally Eye Common normals: PERRL, EOMs intact bilaterally, conjunctivae normal and no scleral icterus General eye: normal appearance of both eyes Chest Common normals: inspection of chest normal Chest: symmetrical chest wall rise Respiratory Common normals: normal respiratory effort and no use of accessory muscles Effort & inspection: able to speak in complete sentences Cardio Common normals: regular rate, regular rhythm, S1 normal heart sound, S2 normal heart sound, no murmurs and peripheral pulses 2+ throughout GI Common normals: Normal to inspection, nondistended, normoactive bowel sounds present, soft to palpation, non-tender and no hepatosplenomegaly Bladder/kidney exam: bladder normal to palpation Extremity Common normals: normal to inspection and no calf tenderness General: no clubbing, no cyanosis and no edema Neuro Common normals: CN's II-XII intact bilaterally, moves all extremities and no sensory deficits noted Psych Common normals: mental status grossly normal Progress Note: Objective Labs Labs: Short CBC 12/22/23 Range/Units 04:55 WBC 7.3 (4.0-11.0) 10^3/uL Hgb 9.3 L (14.0-18.0) g/dL Hct 30.1 L (42.0-54.0) % Plt Count 143 L (150-450) 10^3/uL BMP 12/22/23 04:55 Sodium 135 L Potassium 4.1 Chloride 103 Carbon Dioxide 25.5 BUN 29.0 H Creatinine 1.37 H Glucose 90 Calcium 9.2 Liver Function 12/22/23 Range/Units 04:55 Total Bilirubin 0.7 (0.2-1.0) mg/dL AST 13 L (15-37) U/L ALT 8 L (16-63) U/L Alkaline Phosphatase 54 (46-116) U/L Albumin 2.7 L (3.4-5.0) g/dL Progress Note: A&P Assessment and Plan (1) Suspected cerebrovascular accident (CVA): Assessment and Plan: Acute/subacute * Stable - Mild LUE improvement, otherwise no change * 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 Intervention not indicated * No evidence of acute intracranial hemorrhage despite falls while taking Xarelto * Ischemic CVA likely indicates failure of Xarelto and alternate anticoagulation should be considered - defer to neurology * Lipid panel & A1C - WNL * 2D Echo (w/ bubble study) completed 12/20/23 - LVEF improved to 50-55% (from recent 40-45%); RV moderately dilated w/ reduced SF w/ mildly elevated RVSP 35 mmHg; Biatrial enlargement, Mild tricuspid and aortic regurg, moderate mitral regurg; Ascending aorta and aortic root mildly dilated; no intracardiac shunt w/ agitated saline. * C/S Telestroke service - we appreciate their assistance with this pt's care * Televisit 12/21/23 * Add low dose aspirin to med regimen, continue Xarelto * Avoid hypotension - currently borderline hypotension despite holding antiHTN medications * C/S PT/OT/SHADE CUTTER * Neuro checks q4h - no change to date * Tele * CBC, CMP daily (2) Frequent falls: Assessment and Plan: Acute * Suspect 2/2 possible CVA/acute weakness w/ underlying chronic weakness possible * PT/OT consults * CVA work up as above * Consider SNF placement planned in the next 24-48 hrs (3) Weakness: Assessment and Plan: Acute * See suspected CVA above (4) JORY (acute kidney injury): Assessment and Plan: Acute * Resolved (BUN 29, Cr 1.37, GFR 49 today) * Baseline CKD3a: BUN 25-32, Cr 1.21-1.55, GFR 43-58 * Dehydration resolved * CMP daily (5) Paroxysmal A-fib: Assessment and Plan: Chronic * EKG fully V-paced in ED * Continue home metoprolol, at reduced dosing of 50 mg daily, for rate control * Continue home Xarelto - OK per neurology (6) HFrEF (heart failure with reduced ejection fraction): Assessment and Plan: Chronic * Euvolemic, weights stable * Improved LVEF to 50-55% on 2D Echo from 12/20/23 * D/c spironolactone, now and at d/c d/t hypotension/JORY/dehydration * Reduce home lasix dose to 20 mg q48hrs w/ plan to resume in AM * Continue daily weights/strict I&O (7) BPH (benign prostatic hyperplasia): Assessment and Plan: Chronic * Continue home tamsulosin (8) Glaucoma: Assessment and Plan: Chronic * Continue home brimonidine, latanoprost, timolol (9) Hypertension: Assessment and Plan: Chronic * Continue home metoprolol at reduced dose of 50mg daily d/t borderline hypotension * Hold for hypotension * D/C home lisinopril - now and at discharge d/t borderline hypotension despite holding lisinopril since admission (10) High blood cholesterol: Assessment and Plan: Chronic * Continue home statin (11) Cervical radiculopathy: Assessment and Plan: Chronic * Continue home baclofen and Lyrica (12) Anemia: Assessment and Plan: Chronic * 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
--- NOTE | 2023-12-22 13:21 | CM.NOTE ---
Progress notes and PT notes faxed to [facility].
--- NOTE | 2023-12-22 14:16 | CM.NOTE ---
HENS completed online for alf facility.
[2023-12-22] MEDS: TAMSULOSIN HCL 0.4 MG CAPSULE 0.400000000000000022 MG PO (20:52)
[2023-12-22] MEDS: LATANOPROST 0.005% 2.5 ML BOTTLE 1 DROP EYE-BOTH (21:00)
[2023-12-23] VITALS (8 sets, daily range): BP systolic 98–106; BP diastolic 46–55; PULSE 52–79; TEMP 36.6–37.3; O2SAT 62–94
[2023-12-23 05:00] LABS: Basophils Percent Auto 0.5 % (0.2-2.0); Eosinophils Absolute Auto 0.2 10^3/uL (0.0-0.7); Hematocrit 28.5 % (42.0-54.0); Immature Granulocytes Abs Auto 0.02 10^3/uL (0.00-0.03); Immature Granulocytes Pct Auto 0.3 % (0.0-0.5); Lymphocytes Absolute Auto 1.3 10^3/uL (1.2-3.8); Mean Corpuscular HGB Conc 31.6 g/dL (29.9-35.2); Mean Corpuscular Hemoglobin 27.4 pg (25.9-34.0); Mean Corpuscular Volume 86.6 fL (80.0-94.0); Mean Platelet Volume 12.6 fL (9.5-13.5); Monocytes Absolute Auto 0.7 10^3/uL (0.3-0.8); Monocytes Percent Auto 10.6 % (1.7-12.0); Neutrophils Absolute Auto 4.3 10^3/uL (1.4-6.5); Neutrophils Percent Auto 65.6 % (43.0-75.0); Platelet Count 145 10^3/uL (150-450); Red Blood Count 3.29 10^6/uL (4.70-6.10); Red Cell Distribution Width 14.4 % (11.0-15.0); White Blood Count 6.6 10^3/uL (4.0-11.0)
[2023-12-23 05:52] LABS: Alanine Aminotransferase 9 U/L (16-63); Albumin Globulin Ratio 0.5; Albumin Level 2.5 g/dL (3.4-5.0); Alkaline Phosphatase 55 U/L (46-116); Anion Gap 12.3; Aspartate Amino Transferase 14 U/L (15-37); BUN Creatinine Ratio 21.5; Bilirubin Total 0.7 mg/dL (0.2-1.0); Calcium 8.8 mg/dL (8.5-10.1); Chloride 104 mmol/L (98-107); Estimated GFR (African America >60 (>=60); Estimated GFR (Non-African Ame 52 (>=60); Globulin 4.7 g/dL; Glucose 87 mg/dL (74-106); Potassium 4.3 mmol/L (3.5-5.1); Sodium 136 mmol/L (136-145); Total Protein 7.2 g/dL (6.4-8.2)
--- NOTE | 2023-12-23 08:19 | P.DS_ITS ---
DS: Providers Provider Date of admission: 12/20/23 12:37 Primary care physician: KERRI OSBORNE Admitting clinician: Mesfin Magaña Consults: 12/20/23 11:20 Consult to Telestroke Routine Reason for consultation: L leg weakness 12/20/23 11:32 Occupational Therapy Eval and Treat Routine Reason for consultation: Weakness/falls/possible CVA Has provider been notified: No Physical Therapy Eval and Treat Routine Reason for consultation: Weakness/falls/possible CVA Has provider been notified: No Speech Therapy Eval and Treat Routine Reason for consultation: possible CVA Has provider been notified: No Discharging clinician: Erika Paulson DS: Diagnosis Discharge Diagnosis (1) Suspected cerebrovascular accident (CVA): (2) Frequent falls: (3) Weakness: (4) JORY (acute kidney injury): (5) Paroxysmal A-fib: (6) HFrEF (heart failure with reduced ejection fraction): (7) BPH (benign prostatic hyperplasia): (8) Glaucoma: (9) Hypertension: (10) High blood cholesterol: (11) Cervical radiculopathy: (12) Anemia: DS: Summary Hospital Course Hospital Course: Patient is a 88-year-old male patient with a complicated past medical history including paroxysmal A-fib and history of PE/DVT on Xarelto, HFrEF LVEF 40 to 45% 07/2023, severe pulmonary HTN, pacemaker in place for sick sinus syndrome, BPH, HTN, and hyperlipidemia among others; who presented to the ED today complaining of frequent falls for the last 5 days. He notes onset of mild left lower extremity weakness about 7 to 10 days ago and his family notes onset of a weak voice about 5 to 7 days ago. The patient reports falling 3 times in the last 5 days which is unusual for him. He denies dizziness, vision changes, chest pain, shortness of breath, or N/V/D. He does complain of a cough for 2 to 3 days. He presented to the ED on 12/20/23 for further evaluation as his symptoms were persistent. Patient with suspected CVA with further neurologic workup and telestroke consult. CT of the brain did not show any acute changes, just lacunar infarcts noted in the right basal ganglia and left insula consistent with the imaging from yesterday and thought to be chronic in nature. No new focal findings or complaints at the time of discharge. Telestroke is recommending daily aspirin be added to his regimen and that hypotension be avoided. Despite holding his lisinopril, lasix and spironolactone since admission, his BP remains soft. We will reduce his home metoprolol succinate to 50 mg daily. We will reduce his home lasix dose to 20 mg in the AM q 48 hours and to avoid hypotension. His spironolactone and lisinopril will be discontinued at discharge. New meds will be addressed at snf and the need for further adjustments may occur. I would recommend recheck BMP within 1 week and daily monitoring of BP. He will be discharged to [facility] today. Status at Discharge Functional status at discharge: uses cane/walker Time Spent with Patient Time attestation: Total time spent providing and/or coordinating discharge services: Time spent: greater than 30 minutes Exam Narrative Exam Narrative: General: Patient is alert, and oriented to person, place and time with normal affect, proper hygiene Skin: multiple ecchymosis Head: atraumatic, acephalic Eyes: PERRLA, no nystagmus present, conjunctiva clear, no scleral icterus Heart: Normal rate and rhythm, no murmurs/rubs/gallops Lungs: no audible wheezes, crackles and normal breath sounds all lung perry Abdomen: Normal audible bowel sounds, no distension, No palpable masses, no organomegaly, no rebound/guarding/ or rigidity Musculoskeletal: muscle atrophy noted, ROM is limited due to being in hospital bed, no swelling bilateral lower extremities Neuro: CN II-X grossly intact Constitutional Vital Signs, click to edit/add: Last Vital Signs Temp 98.3 F 12/23/23 04:43 Pulse 61 12/23/23 08:00 Resp 16 12/23/23 04:43 BP 106/55 12/23/23 04:43 Pulse Ox 94 L 12/23/23 04:43 O2 Del Method Room Air 12/23/23 04:43 DS: Data Data Completed and Pending Labs on day of discharge: Labs from last 24 hours 12/23/23 04:41 WBC 6.6 RBC 3.29 L Hgb 9.0 L Hct 28.5 L MCV 86.6 MCH 27.4 MCHC 31.6 RDW 14.4 Plt Count 145 L MPV 12.6 Neut % (Auto) 65.6 Lymph % (Auto) 20.0 L [place] % (Auto) 10.6 Eos % (Auto) 3.0 Baso % (Auto) 0.5 Neut # (Auto) 4.3 Lymph # (Auto) 1.3 [place] # (Auto) 0.7 Eos # (Auto) 0.2 Baso # (Auto) 0.0 Abs Immat Gran (auto) 0.02 Imm/Tot Granulo (auto) 0.3 Sodium 136 Potassium 4.3 Chloride 104 Carbon Dioxide 24.0 Anion Gap 12.3 BUN 28.0 H Creatinine 1.30 Est GFR ( Amer) >60 Est GFR (Non-Af Amer) 52 L BUN/Creatinine Ratio 21.5 Glucose 87 Calcium 8.8 Total Bilirubin 0.7 AST 14 L ALT 9 L Alkaline Phosphatase 55 Total Protein 7.2 Albumin 2.5 L Globulin 4.7 Albumin/Globulin Ratio 0.5 Discharge Plan Discharge Disposition: er SNF Condition: Fair Discharge Medications: New metoprolol succinate 50 mg tablet extended release 24 hr 50 mg PO DAILY Qty: 30 0RF furosemide 20 mg tablet 20 mg PO Q48H Qty: 30 0RF aspirin [Adult Low Dose Aspirin] 81 mg tablet,delayed release (DR/EC) 81 mg PO DAILY Qty: 30 0RF Continued Xarelto 15 mg tablet 15 mg PO DAILY allopurinol 100 mg tablet 100 mg PO DAILY atorvastatin 10 mg tablet 10 mg PO DAILY baclofen 10 mg tablet 10 mg PO BEDTIME brimonidine 0.2 % drops 1 drp OPHTHALMIC (EYE) BID latanoprost 0.005 % drops 1 drp OPHTHALMIC (EYE) BEDTIME oxybutynin chloride 5 mg tablet extended release 24hr 5 mg PO DAILY pregabalin 75 mg capsule 75 mg PO DAILY timolol maleate 0.5 % drops 1 drp OPHTHALMIC (EYE) DAILY tamsulosin 0.4 mg capsule 0.4 mg PO DAILY Discontinued furosemide 40 mg tablet 40 mg PO .every other day lisinopril 20 mg tablet 20 mg PO DAILY metoprolol succinate 100 mg tablet extended release 24 hr 100 mg PO DAILY spironolactone 25 mg tablet 25 mg PO DAILY Print Language: Thai Activity Restrictions/Additional Instructions: - Obtain daily weights x 2 weeks. Contact provider for orders if more than 3#/day or 5#/week weight gain - Obtain daily VS x 2 weeks to monitor BP w/ new med regimen Forms: Portal Instructions Discharge location: [facility]
[2023-12-23] MEDS: BACLOFEN 10 MG TABLET PO (08:59)
[2023-12-23] MEDS: PREGABALIN 75 MG CAPSULE PO (08:59)
[2023-12-23] MEDS: OXYBUTYNIN CHLORIDE 5 MG TAB XL PO (08:59)
[2023-12-23] MEDS: ASPIRIN 81 MG TAB.CHEW PO (08:59)
[2023-12-23] MEDS: ATORVASTATIN CALCIUM 10 MG TABLET PO (08:59)
[2023-12-23] MEDS: RIVAROXABAN 10 MG TABLET 15 MG PO (08:59)
[2023-12-23] MEDS: BRIMONIDINE TARTRATE 0.15 % OP SOL 100 DROP/5 ML BOTTLE EYE-LEFT (09:00)
[2023-12-23] MEDS: TIMOLOL MALEATE 0.5% OP SOL 100 DROPS/5 ML BOTTLE 1 DROP OP (09:01)
[2023-12-23] MEDS: FUROSEMIDE 40 MG TABLET 20 MG PO (09:01)
--- NOTE | 2023-12-23 09:12 | PT.DAILY ---
Physical Therapy Daily Note PT Daily Note/Assess Start: 12/22/23 11:29 Freq: Status: Active Protocol: Document 12/23/23 09:11 DONY (Rec: 12/23/23 09:12 DONY [id number]) Visit Not Completed Visit Not Completed Visit Not Completed Due to: Other Other Reason Visit Not Completed With other provider. Planned dc to SNF today. Physical Therapy Daily Note/Assessment Time In/Time Out Time In 08:57 Time Out 08:57 Pain In Pain N/A Pain Out Pain N/A GG. Functional Abilities and Goals-Complete for Swing Bed Patients Only [id number]. Self-Care [id number]. Mobility
[2023-12-23] MEDS: ACETAMINOPHEN 325 MG TABLET 650 MG PO (11:10)
== END 2023-12-23 13:18 | DRG 65 ==
LOC: ER 11:20 → MS 12:41
PROVIDERS: Nurse Practitioner; Admitting Provider Family Medicine; Emergency Provider Emergency Medicine; PCP Internal Medicine; Visit Provider Family Medicine
DX: I63.9 Cerebral infarction, unspecified (principal); G81.94 Hemiplegia, unspecified affecting left nondominant side; I13.0 Hypertensive heart and chronic kidney disease with heart failure and stage 1 through stage 4 chronic kidney disease, or unspecified chronic kidney disease; I50.22 Chronic systolic (congestive) heart failure; N17.9 Acute kidney failure, unspecified; I42.9 Cardiomyopathy, unspecified; N18.31 Chronic kidney disease, stage 3a; I65.22 Occlusion and stenosis of left carotid artery; R29.704 NIHSS score 4; R49.8 Other voice and resonance disorders; Z91.81 History of falling; I48.0 Paroxysmal atrial fibrillation; E86.0 Dehydration; E78.00 Pure hypercholesterolemia, unspecified; D63.1 Anemia in chronic kidney disease; R32 Unspecified urinary incontinence; M10.9 Gout, unspecified; N40.0 Benign prostatic hyperplasia without lower urinary tract symptoms; M54.12 Radiculopathy, cervical region; I27.20 Pulmonary hypertension, unspecified; K21.9 Gastro-esophageal reflux disease without esophagitis; L40.50 Arthropathic psoriasis, unspecified; I49.5 Sick sinus syndrome; I73.00 Raynaud's syndrome without gangrene; H40.9 Unspecified glaucoma; Z79.899 Other long term (current) drug therapy; Z79.01 Long term (current) use of anticoagulants; Z87.891 Personal history of nicotine dependence; Z95.0 Presence of cardiac pacemaker; Z86.718 Personal history of other venous thrombosis and embolism; Z86.711 Personal history of pulmonary embolism; Z82.49 Family history of ischemic heart disease and other diseases of the circulatory system; Z86.73 Personal history of transient ischemic attack (TIA), and cerebral infarction without residual deficits
CPT/HCPCS: 36415; 70450; 70496; 70498; 71045; 80053; 80061; 81001; 83036; 84484; 85025; 87804; 87811; 92523; 93005; 93306; 94667; 94668; 97162; 97165; 97530; 99285; Q3014; Q9966